=== PATIENT | female | born 1980 | race American Indian/Alaskan Native ===

== ENCOUNTER 2018-06-18 20:06 | Emergency (ER) | payer OTHER ==
[2018-06-18] MEDS ORDERED: Morphine 4 mg/ml ISec IVP STA (20:43)
--- NOTE | 2018-06-18 20:48 | ED PDOC ---
Arrival/HPI <Abhay Georges - Last Filed: 06/18/18 23:17> - General Historian: Patient - History of Present Illness Narrative History of Present Illness (Text): 06/18/18 20:44 38 y/o female, pmh including gastric bypass 02/2018 performed at the [facility] by Dr. Wood, c/o HERBER drained has been stop working with tube dislodge for the past 3 weeks and pain. Pt. stated that she has been seen by her own surgeon, told her that she just need follow up in 2 weeks, here for the evaluation and second opinion, no fever or chills, no headache or night sweat, no dizziness, no change in vision, no rash, no other medical or psychological complaints. <Anmol Melara - Last Filed: 06/18/18 23:43> - General Chief Complaint: GI Problem Time Seen by Provider: 06/18/18 20:20 Past Medical History - Provider Review Nursing Documentation Reviewed: Yes - Hematological/Oncological Other/Comment: Sepsis from Surgery 2017 - Psychiatric Hx Substance Use: No - Surgical History Hx Gastric Bypass Surgery: Yes (02/2018) <Anmol Melara - Last Filed: 06/18/18 23:43> Family/Social History - Physician Review Nursing Documentation Reviewed: Yes Family/Social History: Unknown Family HX Smoking Status: Never Smoked Hx Alcohol Use: No Hx Substance Use: No <Anmol Melara - Last Filed: 06/18/18 23:43> Allergies/Home Meds <Abhay Georges - Last Filed: 06/18/18 23:17> <Anmol Melara - Last Filed: 06/18/18 23:43> Allergies/Adverse Reactions: Allergies No Known Allergies Allergy (Verified 06/18/18 20:28) Review of Systems - Review of Systems Constitutional: absent: Fatigue, Fevers Eyes: absent: Vision Changes ENT: absent: Hearing Changes Respiratory: absent: SOB, Cough Cardiovascular: absent: Chest Pain Gastrointestinal: Abdominal Pain. absent: Diarrhea, Nausea, Vomiting Musculoskeletal: absent: Arthralgias, Back Pain Skin: absent: Rash, Pruritis, Skin Lesions Neurological: absent: Headache, Dizziness Psychiatric: absent: Anxiety, Depression, Suicidal Ideation <Anmol Melara - Last Filed: 06/18/18 23:43> Physical Exam Vital Signs Temp Pulse Resp BP Pulse Ox 06/18/18 20:28 97.7 F 93 H 18 114/70 100 <Abhay Georges - Last Filed: 06/18/18 23:17> Vital Signs Reviewed: Yes Vital Signs Temp Pulse Resp BP Pulse Ox 06/18/18 20:28 97.7 F 93 H 18 114/70 100 Temperature: Afebrile Blood Pressure: Normal Pulse: Regular Respiratory Rate: Normal Appearance: Positive for: Well-Appearing, Non-Toxic Pain Distress: Moderate Mental Status: Positive for: Alert and Oriented X 3 - Systems Exam Head: Present: Atraumatic, Normocephalic Pupils: Present: PERRL Extroacular Muscles: Present: EOMI Conjunctiva: Present: Normal Mouth: Present: Moist Mucous Membranes Neck: Present: Normal Range of Motion Respiratory/Chest: Present: Clear to Auscultation, Good Air Exchange. No: Respiratory Distress, Accessory Muscle Use Cardiovascular: Present: Regular Rate and Rhythm, Normal S1, S2. No: Murmurs Abdomen: Present: Tenderness (rt. sided HERBER drain region insertion region but there is no cellulitis or ulcer. ), Other (HERBER drained noted on the lt. sided abdomen with seroseguinous fluid approx. 20cc. ). No: Distention, Peritoneal Signs, Rebound, Guarding Back: Present: Normal Inspection Upper Extremity: Present: Normal Inspection. No: Cyanosis, Edema Lower Extremity: Present: Normal Inspection. No: Edema Neurological: Present: GCS=15, CN II-XII Intact, Speech Normal Skin: Present: Warm, Dry, Normal Color. No: Rashes Psychiatric: Present: Alert, Oriented x 3, Normal Insight, Normal Concentration <Anmol Melara - Last Filed: 06/18/18 23:43> Medical Decision Making - Lab Interpretations Lab Results: 06/18/18 21:00 06/18/18 21:00 Lab Results 06/18/18 21:00: WBC 9.2, RBC 5.17, Hgb 13.9, Hct 41.9, MCV 81.0, MCH 26.9, MCHC 33.2, RDW 17.1 H, Plt Count 298, MPV 10.1, Gran % 58.8, Lymph % (Auto) 28.2, [place] % (Auto) 9.2 H, Eos % (Auto) 3.5, Baso % (Auto) 0.3, Gran # 5.40, Lymph # (Auto) 2.6, [place] # (Auto) 0.9 H, Eos # (Auto) 0.3, Baso # (Auto) 0.03 06/18/18 21:00: Sodium 137, Potassium 3.1 L, Chloride 96 L, Carbon Dioxide 26, Anion Gap 18, BUN 12, Creatinine 0.6 L, Est GFR ( Amer) > 60, Est GFR (Non-Af Amer) > 60, Random Glucose 85, Calcium 9.0, Total Bilirubin 1.1, AST 36, ALT 35, Alkaline Phosphatase 93, Total Protein 8.2, Albumin 4.0, Globulin 4.2, Albumin/Globulin Ratio 0.9 L 06/18/18 21:00: Urine Color Dark yellow, Urine Appearance Cloudy, Urine pH 6.5, Ur Specific [place] 1.025, Urine Protein 100 H, Urine Glucose (UA) Negative, Urine Ketones >=80, Urine Blood Large H, Urine Nitrate Negative, Urine Bilirubin Moderate H, Urine Urobilinogen 1.0 H, Ur Leukocyte Esterase Small H, Urine RBC 10 - 15, Urine WBC 1 - 3, Ur Epithelial Cells 4 - 5, Urine Bacteria Neg, Urine HCG, Qual Negative - RAD Interpretation Radiology Orders: 06/18/18 20:43 ABD & PELVIS IV CONTRAST ONLY [CT] Stat - Medication Orders Current Medication Orders: Discontinued Medications Morphine Sulfate (Morphine) 4 mg IVP STAT STA Stop: 06/18/18 20:44 Last Admin: 06/18/18 21:07 Dose: 4 mg MAR Pain Assessment Document 06/18/18 21:07 IT (Rec: 06/18/18 21:07 IT [id number]) Pain Reassessment Is this a pain reassessment? No Sleep Is patient sleeping during reassessment? No Presence of Pain Presence of Pain Yes Pain Scale Used Protocol: PSCALES Pain Scale Used Numeric IVP Administration Document 06/18/18 21:07 IT (Rec: 06/18/18 21:07 IT [id number]) Charges for Administration # of IVP Administrations 1 Potassium Chloride (K-Dur 20 Meq Er Tab) 40 meq PO STAT STA Stop: 06/18/18 21:51 <Abhay Georges - Last Filed: 06/18/18 23:17> ED Course and Treatment: 06/18/18 20:46 -labs/ua -CT abdomen and pelvis -Morphine 4mg IV for pain -observe and reassess 06/18/18 23:13 -Urine hcg is negative -Labs show no acute findings except K+ 3.1 (potassium chloride 40meq po ordered) -UA show +leuko -CT abdomen and pelvis show S/p cholecystectomy. 2 drainage catheters are located within a 6.5 x 4 cm fluid collection in the left upper quadrant which is located between the pancreas and stomach. There are multiple nonobstructing ca lculi noted in the lower pole of the left kidney which includes a Staghorn calculus measuring approximately 2.5 x 1.2 cm. -Surgical team consult, operating room surgical technologist DR. Brambila on the bedside, will discus sed with Dr. Wynn, evaluating the patient. -Case discussed with DR. Georges as well, agreed on this consult. 06/18/18 23:29 -As per surgical team, the patient is stable to be discharged. -The patient preferred to go to the [facility] now for further evaluation as her original surgeon is not here, refused further evaluation. -Case discussed and evaluated by Dr. Georges and evaluated the patient, agreed with the surgical consult plan to discharge and go to the [facility]. -I offered admission but the patient declined and request to leave to go to the [facility] now. -Discharge the patient and advised her to go to see her surgeon as soon as possible, return to the ER for any new or worsening signs or symptoms. - RAD Interpretation Radiology Orders: 06/18/18 20:43 ABD & PELVIS IV CONTRAST ONLY [CT] Stat CONTRAST: With intravenous contrast. COMPARISON: None provided. FINDINGS: LUNG BASES: The lung bases appear clear. No pleural effusions are seen. LIVER: Unremarkable. GALLBLADDER AND BILE DUCTS: S/p cholecystectomy. Surgical clips are noted in the gallbladder fossa. PANCREAS: 2 drainage catheters are located within a 6.5 x 4 cm fluid collection in the left upper quadrant which is located between the pancreas and stomach. SPLEEN: Unremarkable. ADRENAL GLANDS: Unremarkable. KIDNEYS, URETERS, AND BLADDER: There are multiple nonobstructing calculi noted in the lower pole of the left kidney which includes a Staghorn calculus measuring approximately 2.5 x 1.2 cm. STOMACH AND BOWEL: Unremarkable appearance of the stomach and bowel. No evidence of bowel obstruction. No evidence suggesting enteritis or colitis. APPENDIX: No evidence of acute appendicitis on CT examination. PERITONEUM: No free fluid. No free air. LYMPH NODES: No lymphadenopathy is evident. REPRODUCTIVE: Status post complete hysterectomy. VASCULATURE: No evidence of abdominal aortic aneurysm. BONES: No aggressive appearing osseous lesion. No acute osseous pathology evident. IMPRESSION: 1. S/p cholecystectomy. 2. 2 drainage catheters are located within a 6.5 x 4 cm fluid collection in the left upper quadrant which is located between the pancreas and stomach. 3. There are multiple nonobstructing calculi noted in the lower pole of the left kidney which includes a Staghorn calculus measuring approximately 2.5 x 1.2 cm. Electronically signed on Jun 18, 2018 11:02:26 PM EDT by: Ruy Koo M.D., MBA Certified By ABR & CBCCT [employer]: Radiologist - Medication Orders Current Medication Orders: Morphine Sulfate (Morphine) 4 mg IVP STAT STA Stop: 06/18/18 20:44 <Anmol Melara - Last Filed: 06/18/18 23:43> - PA / TREE TRIMMER / Resident Statement MIRANDA has reviewed & agrees with the documentation as recorded. MIRANDA has examined the patient and agrees with the treatment plan. <Abhay Georges - Last Filed: 06/18/18 23:17> - PA / TREE TRIMMER / Resident Statement MIRANDA has reviewed & agrees with the documentation as recorded. MIRANDA has examined the patient and agrees with the treatment plan. <Anmol Melara - Last Filed: 06/18/18 23:43> Disposition/Present on Arrival <Abhay Georges - Last Filed: 06/18/18 23:17> - Present on Arrival Any Indicators Present on Arrival: No History of DVT/PE: No History of Uncontrolled Diabetes: No Urinary Catheter: No History of Decub. Ulcer: No History Surgical Site Infection Following: None - Disposition Have Diagnosis and Disposition been Completed?: Yes Disposition Time: 23:32 Patient Plan: Discharge <Anmol Melara - Last Filed: 06/18/18 23:43> - Disposition Diagnosis: Corona elias drain site pain, UTI (urinary tract infection) Disposition: HOME/ ROUTINE Patient Problems: Current Active Problems Problem Status Onset Corona elias drain site pain Acute UTI (urinary tract infection) Acute Condition: IMPROVED Additional Instructions: -Discharge the patient and advised her to go to see her surgeon as soon as possible, macrobid, continue your pain med as needed, return to the ER for any new or worsening signs or symptoms. Prescriptions: Nitrofurantoin Macrocrystals [Macrobid] 100 mg PO BID #14 cap Referrals: PCP,NO [Primary Care Provider] - Follow up with primary Mayra Wynn MD [Staff Provider] - Follow up with primary Forms: [employer] (Irish), WORK NOTE
[2018-06-18 20:49] VITALS: O2SAT 100; BMI 41.8
[2018-06-18 21:12] LABS: BASO # 0.03 K/mm3 (0.0-2.0); BASO % 0.3 % (0.0-3.0); EOS # 0.3 (0.0-0.7); EOS % 3.5 % (1.5-5.0); GRAN # 5.4 (1.4-6.5); GRAN % 58.8 % (50.0-68.0); HEMOGLOBIN 13.9 g/dL (12.0-16.0); LYMPH # 2.6 (1.2-3.4); LYMPH % 28.2 % (22.0-35.0); MEAN CORPUSCULAR HEMOGLOBIN 26.9 pg (25.0-35.0); MEAN CORPUSCULAR HGB CONC 33.2 g/dl (31.0-37.0); MEAN PLATELET VOLUME 10.1 fl (7.0-11.0); MONO # 0.9 (0.1-0.6); MONO % 9.2 % (1.0-6.0); RBC 5.17 10^6/uL (3.5-6.1); RED CELL DISTRIBUTION WIDTH 17.1 % (11.5-14.5); WHITE BLOOD COUNT 9.2 10^3/ul (4.5-11.0)
[2018-06-18 21:17] LABS: PH,URINE 6.5 (4.7-8.0); URINE APPEARANCE CLOUDY (CLEAR); URINE BILIRUBIN MODERATE (NEGATIVE); URINE BLOOD LARGE (NEGATIVE); URINE COLOR DARK YELLOW (YELLOW); URINE GLUCOSE (UA) NEGATIVE (NEGATIVE); URINE LEUKOCYTE ESTERASE SMALL Leu/uL (NEGATIVE); URINE PROTEIN 100 mg/dL (<30 mg/dL)
[2018-06-18 21:18] LABS: HCG,QUALITATIVE URINE NEGATIVE (NEGATIVE)
[2018-06-18 21:22] LABS: ALB/GLOB RATIO 0.9 (1.1-1.8); ALT/SGPT 35 U/L (7-56); AST/SGOT 36 U/L (14-36); BLOOD UREA NITROGEN 12 mg/dL (7-21); GFR NON-AFRICAN AMERICAN > 60
[2018-06-18] MEDS ORDERED: Iohexol 350 MG/100 ML VIAL ONE (21:27)
[2018-06-18 21:30] LABS: URINE BACTERIA NEG (NEG)
[2018-06-18] MEDS ORDERED: Potassium Chloride 20 mEq ER Tab PO STA (21:50)
[2018-06-18 22:53] VITALS: RESP 17
--- NOTE | 2018-06-19 00:11 | CP.PCM.CON ---
History of Present Illness - History of Present Illness History of Present Illness: General Surgery Consult for Dr. Wynn This is a 38F with a PMH of morbid obeisity who presents 2 month post op from a two stage gastric sleeve biliopancratic diversion complicated by intraabdominal abscess. She came to the ED today because her HERBER drain will not maintain suction. She reports she is passing gas and having flatus. She denies any significant abdominal pain. She denies any fevers or chills at home. She reports a baseline SOB with exertion, she denies any chest pain. PMH: Resolved HTN, Resolved DM, Resolved MANSI PSH: see above ALL: Denies Social: Denies vices Review of Systems - Review of Systems Review of Systems: 12 point review of symptosm conducted and negative except for dyspnea on exertion, dyphagia, and bilateral lower extremity myalgia Past Patient History - Past Social History Smoking Status: Never Smoked - ENDOCRINE/METABOLIC Hx Diabetes Mellitus Type 2: Yes - HEMATOLOGICAL/ONCOLOGICAL Other/Comment: Sepsis from Surgery 2018 - PSYCHIATRIC Hx Substance Use: No - SURGICAL HISTORY Hx Gastric Bypass Surgery: Yes (02/2018) Meds Home Medications: Home Medication List Medication Instructions Recorded Confirmed Type Nitrofurantoin Macrocrystals 100 mg PO BID #14 cap 06/18/18 Rx [Macrobid] Allergies/Adverse Reactions: Allergies Allergy/AdvReac Type Severity Reaction Status Date / Time No Known Allergies Allergy Verified 06/18/18 20:28 Physical Exam - Constitutional Appears: Non-toxic, No Acute Distress - Head Exam Head Exam: NORMAL INSPECTION, NORMOCEPHALIC - ENT Exam ENT Exam: Mucous Membranes Moist - Respiratory Exam Respiratory Exam: NORMAL BREATHING PATTERN - Cardiovascular Exam Cardiovascular Exam: REGULAR RHYTHM, +S1, +S2. absent: Tachycardia - GI/Abdominal Exam GI & Abdominal Exam: Soft. absent: Distended, Firm, Guarding, Hernia, Ten derness Additional comments: Multiple surgical Scars, Suction drain with purulent output - Neurological Exam Neurological exam: Alert, Oriented x3 - Psychiatric Exam Psychiatric exam: Normal Affect, Normal Mood - Skin Skin Exam: Dry, Intact Results - Vital Signs Recent Vital Signs: Last Vital Signs Temp 97.7 F 06/18/18 20:28 Pulse 65 06/18/18 22:52 Resp 17 06/18/18 22:52 BP 107/62 06/18/18 22:52 Pulse Ox 100 06/18/18 22:52 - Labs Result Diagrams: 06/18/18 21:00 06/18/18 21:00 Labs: Laboratory Results - last 24 hr 06/18/18 06/18/18 06/18/18 21:00 21:00 21:00 WBC 9.2 RBC 5.17 Hgb 13.9 Hct 41.9 MCV 81.0 MCH 26.9 MCHC 33.2 RDW 17.1 H Plt Count 298 MPV 10.1 Gran % 58.8 Lymph % (Auto) 28.2 [place] % (Auto) 9.2 H Eos % (Auto) 3.5 Baso % (Auto) 0.3 Gran # 5.40 Lymph # (Auto) 2.6 [place] # (Auto) 0.9 H Eos # (Auto) 0.3 Baso # (Auto) 0.03 Sodium 137 Potassium 3.1 L Chloride 96 L Carbon Dioxide 26 Anion Gap 18 BUN 12 Creatinine 0.6 L Est GFR ( Amer) > 60 Est GFR (Non-Af Amer) > 60 Random Glucose 85 Calcium 9.0 Total Bilirubin 1.1 AST 36 ALT 35 Alkaline Phosphatase 93 Total Protein 8.2 Albumin 4.0 Globulin 4.2 Albumin/Globulin Ratio 0.9 L Urine Color Dark yellow Urine Appearance Cloudy Urine pH 6.5 Ur Specific [place] 1.025 Urine Protein 100 H Urine Glucose (UA) Negative Urine Ketones >=80 Urine Blood Large H Urine Nitrate Negative Urine Bilirubin Moderate H Urine Urobilinogen 1.0 H Ur Leukocyte Esterase Small H Urine RBC 10 - 15 Urine WBC 1 - 3 Ur Epithelial Cells 4 - 5 Urine Bacteria Neg Urine HCG, Qual Negative - Imaging and Cardiology CT scan - abdomen Status: Image reviewed by me, Report reviewed by me CT scan - pelvis Status: Image reviewed by me, Report reviewed by me Assessment & Plan - Assessment and Plan (Free Text) Assessment: 38F POD Bariatric Surgery CT scan shows small collection adjacent to drain Vitals normal, no Leukocytosis Recommend followup with bariatric surgeon Discussed plan to return to [facility] ED where she had her surgery if she develops symptoms such as fevers or chills or anything concerning Discussed that inability of drain to maintain suction may indicate that it has been pulled out. Will discuss with Dr. Kingsley Kruse PGY3
[2018-06-19 00:12] VITALS: BP 101/60; PULSE 70; TEMP 98.2
--- NOTE | 2018-06-19 09:54 | CT ---
Date of service: 06/18/2018 PROCEDURE: CT Abdomen and Pelvis with contrast HISTORY: Rt. HERBER Drain not working, pain Relevant surgical history: Gastric bypass procedure February 2018. COMPARISON: None. TECHNIQUE: Intravenous contrast dose: 100 cc Omnipaque 350. Radiation dose: Total exam DLP = 1524.20 mGy-cm. This CT exam was performed using one or more of the following dose reduction techniques: Automated exposure control, adjustment of the mA and/or kV according to patient size, and/or use of iterative reconstruction technique. FINDINGS: LOWER THORAX: Unremarkable. LIVER: Unremarkable. No gross lesion or ductal dilatation. GALLBLADDER AND BILE DUCTS: Postoperative changes in the gallbladder fossa. PANCREAS: Unremarkable. No gross lesion or ductal dilatation. SPLEEN: Unremarkable. ADRENALS: Unremarkable. No mass. KIDNEYS AND URETERS: Left kidney: Partial staghorn calculus lower pole measures 1.2 x 2.9 cm. Additional small adjacent fragments identified in the lower pole/lower pole collecting system. Unremarkable. No hydronephrosis. No solid mass. VASCULATURE: Unremarkable. No aortic aneurysm. No atherosclerotic calcification or mural plaque present. BOWEL: Unremarkable. No obstruction. No gross mural thickening. APPENDIX: Normal appendix. PERITONEUM: Unremarkable. No free fluid. No free air. LYMPH NODES: Unremarkable. No enlarged lymph nodes. BLADDER: Unremarkable. REPRODUCTIVE: Prior hysterectomy. BONES: No acute fracture. OTHER FINDINGS: The Corona-Rivers drain inserted to the right of the midline courses through upper peritoneal structures and is identified in the left upper quadrant draped over a complex primarily cystic mass measuring 4.2 x 7 cm interposed between the pancreas, left lobe of liver and the gastric remnant. IMPRESSION: Postoperative findings left upper quadrant include those related to prior gastric bypass surgery. Corona-Rivers drains identified left upper quadrant adjacent to primarily cystic well-circumscribed collection/mass measuring 4.2 x 6.9 cm. Concordant results (preliminary interpretation) provided by [employer]. Procedure Completed: 21:36 Preliminary Report: Dictated and Authenticated: 23:02. Final Interpretation: 09:51. June 19, 2018
== END 2018-06-19 00:12 | disposition home or self-care (01) ==
LOC: ED 20:06
DX: N39.0 Urinary tract infection, site not specified (principal); G89.18 Other acute postprocedural pain; E11.9 Type 2 diabetes mellitus without complications; E66.01 Morbid (severe) obesity due to excess calories; Z98.84 Bariatric surgery status
CPT/HCPCS: 74177; 80053; 81001; 84703; 85025; 87086; 96374; 99284; J2270; Q9967

== ENCOUNTER 2018-07-29 14:08 | Emergency (ER) | payer OTHER ==
[2018-07-29 14:16] VITALS: BMI 39.8
[2018-07-29 14:19] VITALS: RESP 18; O2SAT 100
[2018-07-29] MEDS ORDERED: Sodium Chloride 0.9% 1,000 ML IV STA (14:33)
[2018-07-29 14:55] LABS: URINE BILIRUBIN MODERATE (NEGATIVE); URINE BLOOD MODERATE (NEGATIVE); URINE GLUCOSE (UA) NEGATIVE (NEGATIVE); URINE LEUKOCYTE ESTERASE SMALL Leu/uL (NEGATIVE); URINE PROTEIN TRACE mg/dL (<30 mg/dL); URINE UROBILINOGEN 0.2 E.U./dL (<1 E.U./dL)
[2018-07-29 14:59] LABS: URINE COLOR YELLOW (YELLOW)
[2018-07-29 15:00] LABS: URINE APPEARANCE CLOUDY (CLEAR)
[2018-07-29 15:03] LABS: URINE BACTERIA FEW (NEG); URINE EPITHELIAL CELLS MANY /hpf (0-5)
[2018-07-29 15:29] LABS: BASO # 0.01 K/mm3 (0.0-2.0); BASO % 0.1 % (0.0-3.0); EOS # 0.1 (0.0-0.7); EOS % 0.7 % (1.5-5.0); GRAN # 8.13 (1.4-6.5); HEMOGLOBIN 13.4 g/dL (12.0-16.0); LYMPH # 1.7 (1.2-3.4); LYMPH % 16.2 % (22.0-35.0); MEAN CELL VOLUME 84.1 fl (80.0-105.0); MEAN CORPUSCULAR HGB CONC 33.3 g/dl (31.0-37.0); MEAN PLATELET VOLUME 10.2 fl (7.0-11.0); MONO # 0.6 (0.1-0.6); RBC 4.78 10^6/uL (3.5-6.1); RED CELL DISTRIBUTION WIDTH 17.9 % (11.5-14.5); WHITE BLOOD COUNT 10.6 10^3/uL (4.5-11.0)
[2018-07-29 15:36] LABS: ALB/GLOB RATIO 0.9 (1.1-1.8); ALBUMIN 3.6 g/dL (3.0-4.8); ALT/SGPT 34 U/L (7-56); AST/SGOT 30 U/L (14-36); BLOOD UREA NITROGEN 11 mg/dL (7-21); CALCIUM 8.9 mg/dL (8.4-10.5); GFR NON-AFRICAN AMERICAN > 60; LIPASE 71 U/L (23-300)
[2018-07-29 15:39] LABS: INR 1.24; PARTIAL THROMBOPLASTIN TIME 34.7 Seconds (25.1-36.5); PROTHROMBIN TIME 14.2 SECONDS (9.4-12.5)
--- NOTE | 2018-07-29 17:12 | CT ---
Date of service: 07/29/2018 PROCEDURE: CT Abdomen and Pelvis without intravenous contrast HISTORY: Left flank pain COMPARISON: Comparison is made to the previous study dated 06/18/2018 TECHNIQUE: Axial and reformatted coronal and sagittal CT images of the abdomen and pelvis were obtained without IV or oral contrast administration. Contrast dose: 0 Radiation dose: Total exam DLP = 1203.51 mGy-cm. This CT exam was performed using one or more of the following dose reduction techniques: Automated exposure control, adjustment of the mA and/or kV according to patient size, and/or use of iterative reconstruction technique. FINDINGS: LOWER THORAX: There is a small hiatus hernia again noted. LIVER: Mild hepatomegaly is again noted associated with mild heterogeneous attenuation of the liver. GALLBLADDER AND BILE DUCTS: Status post cholecystectomy. PANCREAS: Unremarkable. No gross lesion or ductal dilatation. SPLEEN: Unremarkable. ADRENALS: Unremarkable. No mass. KIDNEYS AND URETERS: There is mild the left hydronephrosis and hydroureter up to 2 millimeter calculus at the distal left ureter adjacent to the UV junction. There are multiple nonobstructing left renal calculi seen at the mid and lower pole. The right kidney is grossly unremarkable. VASCULATURE: Unremarkable. No aortic aneurysm. No aortic atherosclerotic calcification or mural plaque present. BOWEL: Patient status post sleeve gastrectomy. Previously noted fluid collection adjacent to the stomach in the previous exam is not seen in the current study. No evidence of bowel obstruction. APPENDIX: No evidence of appendicitis. PERITONEUM: Unremarkable. No free fluid. No free air. LYMPH NODES: Unremarkable. No enlarged lymph nodes. BLADDER: Unremarkable. REPRODUCTIVE: Uterus and adnexa are not visualized. BONES: No acute fracture. OTHER FINDINGS: None. IMPRESSION: Mild left hydronephrosis and hydroureter up to 2 millimeter calculus at the distal left ureter adjacent to the UV junction. Multiple nonobstructing left renal calculi. Otherwise no evidence of acute pathology in the abdomen and pelvis.
--- NOTE | 2018-07-29 17:15 | ED PDOC ---
Arrival/HPI - General Chief Complaint: Back Pain Historian: Patient - History of Present Illness Narrative History of Present Illness (Text): 07/29/18 16:58 38yo female with history of hypertension, Diabetes, Kidney stone who present with 3days history of left back/flank pain. Describes pain as sharp and constant. She came to ED for the persistent pain. Notes similar pain with her previous kidney stone. Denies vomiting, diarrhea, hematuria, fever, chills, chest pain, dysuria, urinary frequency, trauma, focal weakness, any other complaint. Notes that she is s/p gastric by pass in February. Past Medical History - Provider Review Nursing Documentation Reviewed: Yes - Infectious Disease Hx of Infectious Diseases: None - Cardiac Hx Cardiac Disorders: No - Pulmonary Hx Respiratory Disorders: Yes Hx Sleep Apnea: Yes - Neurological Hx Neurological Disorder: No - HEENT Hx HEENT Disorder: No - Renal Hx Renal Disorder: Yes Hx Kidney Stones: Yes - Endocrine/Metabolic Hx Endocrine Disorders: Yes Hx Diabetes Mellitus Type 2: Yes - Hematological/Oncological Hx Blood Disorders: No - Integumentary Hx Dermatological Disorder: No - Musculoskeletal/Rheumatological Hx Musculoskeletal Disorders: No - Gastrointestinal Hx Gastrointestinal Disorders: Yes Hx Gall Bladder Disease: Yes - Genitourinary/Gynecological Hx Genitourinary Disorders: No - Psychiatric Hx Psychophysiologic Disorder: No Hx Substance Use: No - Surgical History Hx Cholecystectomy: Yes (2016) Hx Gastric Bypass Surgery: Yes (02/2018) - Anesthesia Hx Anesthesia: Yes Hx Anesthesia Reactions: No Hx Malignant Hyperthermia: No Family/Social History - Physician Review Nursing Documentation Reviewed: Yes Family/Social History: Unknown Family HX Smoking Status: Never Smoked Hx Alcohol Use: No Hx Substance Use: No Allergies/Home Meds Allergies/Adverse Reactions: Allergies No Known Allergies Allergy (Verified 06/18/18 20:28) Review of Systems - Physician Review All systems were reviewed & negative as marked: Yes - Review of Systems Constitutional: Normal Eyes: Normal ENT: Normal Respiratory: Normal Cardiovascular: Normal Gastrointestinal: Normal Genitourinary Female: Normal Musculoskeletal: Back Pain Skin: Normal Neurological: Normal Endocrine: Normal Hemo/Lymphatic: Normal Psychiatric: Normal Physical Exam Vital Signs Reviewed: Yes Vital Signs Temp Pulse Resp BP Pulse Ox 07/29/18 14:16 97.5 F L 91 H 18 122/77 100 Temperature: Afebrile Blood Pressure: Normal Pulse: Regular Respiratory Rate: Normal Appearance: Positive for: Well-Appearing, Non-Toxic, Comfortable Pain Distress: None Mental Status: Positive for: Alert and Oriented X 3 - Systems Exam Head: Present: Atraumatic, Normocephalic Pupils: Present: PERRL Extroacular Muscles: Present: EOMI Conjunctiva: Present: Normal Mouth: Present: Moist Mucous Membranes Neck: Present: Normal Range of Motion Respiratory/Chest: Present: Clear to Auscultation, Good Air Exchange. No: Respiratory Distress, Accessory Muscle Use Cardiovascular: Present: Regular Rate and Rhythm, Normal S1, S2. No: Murmurs Abdomen: Present: Tenderness (LEft flank), Normal Bowel Sounds. No: Distention, Peritoneal Signs, Rebound, Guarding, McBurney's Point Tender, Rovsing's Sign Present Back: Present: CVA Tenderness (LEft side). No: Midline Tenderness Upper Extremity: Present: Normal Inspection. No: Cyanosis, Edema Lower Extremity: Present: Normal Inspection. No: Edema Neurological: Present: GCS=15, CN II-XII Intact, Speech Normal Skin: Present: Warm, Dry, Normal Color. No: Rashes Psychiatric: Present: Alert, Oriented x 3, Normal Insight, Normal Concentration Medical Decision Making ED Course and Treatment: 07/29/18 17:44 38yo female in ED for left flank/back pain x 3days. Labs Abdominal/pelvic CT 1L NS, Toradol, Zofran will reassess On re evaluation pt notes that her pain improved Lab was unremarkable. UA have moderate blood and small leuk Abdominal/Pelvic CT KIDNEYS AND URETERS: There is mild the left hydronephrosis and hydroureter up to 2 millimeter calculus at the distal left ureter adjacent to the UV junction. There are multiple nonobstructing left renal calculi seen at the mid and lower pole. The right kidney is grossly unremarkable. VASCULATURE: Unremarkable. No aortic aneurysm. No aortic atherosclerotic calcification or mural plaque present. BOWEL: Patient status post sleeve gastrectomy. Previously noted fluid collection adjacent to the stomach in the previous exam is not seen in the current study. No evidence of bowel obstruction. APPENDIX: No evidence of appendicitis. PERITONEUM: Unremarkable. No free fluid. No free air. LYMPH NODES: Unremarkable. No enlarged lymph nodes. BLADDER: Unremarkable. REPRODUCTIVE: Uterus and adnexa are not visualized. BONES: No acute fracture. OTHER FINDINGS: None. IMPRESSION: Mild left hydronephrosis and hydroureter up to 2 millimeter calculus at the distal left ureter adjacent to the UV junction. Case was DW Dr. zhao who recommends Dc with analgesic and outpt f/u with his office. Also request that pt be given his cell phone number to call him Result was DW the pt and she was given Dr. zhao phone number with the instruction to call him. she spoke with Dr. Zhao while she was in ED. She agreed with the plan. she was DC home with a strainer, Cipro and percocet. Advised TRT ED for worsening symptoms. - Lab Interpretations Lab Results: 07/29/18 15:12 07/29/18 15:12 Lab Results 07/29/18 15:12: Sodium 138, Potassium 3.9, Chloride 97 L, Carbon Dioxide 28, Anion Gap 16, BUN 11, Creatinine 0.7, Est GFR ( Amer) > 60, Est GFR (Non- Af Amer) > 60, Random Glucose 75, Calcium 8.9, Magnesium 1.3 L, Total Bilirubin 0.6, AST 30, ALT 34, Alkaline Phosphatase 79, Total Protein 7.5, Albumin 3.6, Globulin 3.9, Albumin/Globulin Ratio 0.9 L, Lipase 71 07/29/18 15:12: PT 14.2 H, INR 1.24, APTT 34.7 07/29/18 15:12: WBC 10.6, RBC 4.78, Hgb 13.4, Hct 40.2, MCV 84.1 D, MCH 28.0, MCHC 33.3, RDW 17.9 H, Plt Count 300, MPV 10.2, Gran % 77.0 H, Lymph % (Auto) 16.2 L, Carter % (Auto) 6.0, Eos % (Auto) 0.7 L, Baso % (Auto) 0.1, Gran # 8.13 H, Lymph # (Auto) 1.7, Carter # (Auto) 0.6, Eos # (Auto) 0.1, Baso # (Auto) 0.01 07/29/18 14:45: Urine Color Yellow, Urine Appearance Cloudy, Urine pH 6.0, Ur Specific [place] 1.025, Urine Protein Trace H, Urine Glucose (UA) Negative, Urine Ketones >=80, Urine Blood Moderate H, Urine Nitrate Negative, Urine Bilirubin Moderate H, Urine Urobilinogen 0.2, Ur Leukocyte Esterase Small H, Urine RBC 5 - 10, Urine WBC 2 - 5, Ur Epithelial Cells Many, Urine Bacteria Few, Urine Other Uyeast - RAD Interpretation Radiology Orders: 07/29/18 14:33 ABD & PELVIS W/O PO OR IV CONT [CT] Stat - Medication Orders Current Medication Orders: Discontinued Medications Sodium Chloride (Sodium Chloride 0.9%) 1,000 mls @ 1,000 mls/hr IV .Q1H STA Stop: 07/29/18 15:32 Last Admin: 07/29/18 15:18 Dose: 1,000 mls/hr eMAR Start Stop Document 07/29/18 15:18 KV (Rec: 07/29/18 15:19 KV [id number]) Intravenous Solution Start Date 07/29/18 Start Time 15:19 Ketorolac Tromethamine (Toradol) 30 mg IVP STAT STA Stop: 07/29/18 14:34 Last Admin: 07/29/18 15:19 Dose: 30 mg MAR Pain Assessment Document 07/29/18 15:19 KV (Rec: 07/29/18 15:20 KV [id number]) Pain Reassessment Is this a pain reassessment? No Sleep Is patient sleeping during reassessment? No Presence of Pain Presence of Pain Yes Pain Scale Used Protocol: PSCALES Pain Scale Used Numeric Location Left, Right or Bilateral Left Pain Location Body Site Back Description Description Constant Pain Behavior Moaning Crying IVP Administration Document 07/29/18 15:19 KV (Rec: 07/29/18 15:20 KV [id number]) Charges for Administration # of IVP Administrations 1 Ondansetron HCl (Zofran Inj) 4 mg IVP STAT STA Stop: 07/29/18 14:34 Last Admin: 07/29/18 15:19 Dose: 4 mg IVP Administration Document 07/29/18 15:19 KV (Rec: 07/29/18 15:19 KV [id number]) Charges for Administration # of IVP Administrations 1 Disposition/Present on Arrival - Present on Arrival Any Indicators Present on Arrival: No History of DVT/PE: No History of Uncontrolled Diabetes: No Urinary Catheter: No History of Decub. Ulcer: No History Surgical Site Infection Following: None - Disposition Have Diagnosis and Disposition been Completed?: Yes Diagnosis: Kidney stone Disposition: HOME/ ROUTINE Disposition Time: 17:30 Patient Plan: Discharge Condition: STABLE Discharge Instructions (ExitCare): Kidney Stones in Adults Additional Instructions: Follow up with Urologist, Dr. Zhao Return to ED for any new or worsening symptoms Prescriptions: Ciprofloxacin [Cipro] 500 mg PO BID #14 tab oxyCODONE/Acetaminophen [Percocet 5/325 mg Tab] 1 tab PO Q6 #7 tab Referrals: Louis Zhao MD [Staff Provider] - Follow up with primary Forms: [employer] ([place])
[2018-07-29 17:25] VITALS: BP 112/64; PULSE 88; TEMP 97.6
== END 2018-07-29 17:50 | disposition home or self-care (01) ==
LOC: ED 14:08
DX: N20.0 Calculus of kidney (principal); E11.9 Type 2 diabetes mellitus without complications; I10 Essential (primary) hypertension
CPT/HCPCS: 74176; 80053; 81001; 83690; 83735; 85025; 85610; 85730; 87086; 96374; 96375; 99283; J1885; J2405; J7030